=== PATIENT | female | born 1975 | race Hispanic/Latino ===

== ENCOUNTER 2021-03-29 08:00 | Inpatient (IN) | payer OTHER ==
[~2021-03-29] VITALS: Ht 160 cm; Wt 72.6 kg
[2021-03-29] MEDS ORDERED: PANTOPRAZOLE 40 MG 10ML VIAL IV STA (08:05)
[2021-03-29] MEDS ORDERED: ONDANSETRON HCL INJ 2MG/ML 2ML 2 MG/ML VIAL IV STA (08:05)
[2021-03-29] MEDS ORDERED: MORPHINE SULFATE INJ 4 MG/ML INJ 1ML IV STA (08:05)
[2021-03-29] MEDS ORDERED: SODIUM CHLORIDE 0.9% 1000ML 1,000 ML IV STA ×3 (08:05→11:34)
[2021-03-29 08:30] LABS: BASOPHILS # (AUTO) 0.1 (0.0-0.1); BASOPHILS % 0.3 % (0.0-1.0); HEMATOCRIT 39.3 % (34.2-44.1); HEMOGLOBIN 14.2 g/dL (12.0-16.0); LYMPHOCYTES # (AUTO) 1.4 (1.0-3.2); LYMPHOCYTES % 9.2 % (18.0-39.1); MEAN CORPUSCULAR HEMOGLOBIN 30.5 pg (28-32); MEAN CORPUSCULAR HGB CONC 36.1 g/dL (31-35); MEAN CORPUSCULAR VOLUME 84.5 fL (81-99); MONOCYTES # (AUTO) 0.5 (0.2-0.8); MONOCYTES % 3.6 % (4.4-11.3); NEUTROPHILS # (AUTO) 12.8 (2.1-6.9); NEUTROPHILS % 86.3 % (38.7-80.0); PLATELET COUNT 290 x10e3/uL (140-360); RED BLOOD COUNT 4.65 x10e6/uL (3.6-5.1); RED CELL DISTRIBUTION WIDTH 12.7 % (11.7-14.4)
[2021-03-29 08:40] LABS: CLARITY,URINE CLEAR (CLEAR); COLOR,URINE YELLOW (YELLOW); KETONES,URINE TRACE (NEGATIVE); LEUKOCYTE ESTERASE ,URINE NEGATIVE (NEGATIVE); NITRITE,URINE NEGATIVE (NEGATIVE); PROTEIN,URINE DIPSTICK 2+ (NEGATIVE)
[2021-03-29 08:41] LABS: URINE UROBILINOGEN 0.2 mg/dL (0.2 - 1)
[2021-03-29 08:47] LABS: INR 0.85; PARTIAL THROMBOPLASTIN TIME 25.5 seconds (23.8-35.5); PROTHROMBIN TIME 12.2 seconds (11.9-14.5)
[2021-03-29 08:56] LABS: BACTERIA,URINE RARE /HPF; EPITHELIAL CELLS,URINE FEW /LPF; WBC,URINE (MAN) 21-50 /HPF (0-5)
[2021-03-29 08:59] LABS: ALANINE AMINOTRANSFERASE 47 IU/L (0-55); ALBUMIN 4.3 g/dL (3.5-5.0); ALBUMIN/GLOBULIN RATIO 1.3 (0.8-2.0); ALKALINE PHOSPHATASE 63 IU/L (40-150); AMYLASE 46 U/L (25-125); ANION GAP 16.7 mmol/L (8-16); BLOOD UREA NITROGEN 8 mg/dL (7-26); BUN/CREATININE RATIO 12 (6-25); CALCIUM 8.4 mg/dL (8.4-10.2); CARBON DIOXIDE 21 mmol/L (22-29); CHLORIDE 102 mmol/L (98-107); CREATINE KINASE 106 IU/L (29-168); CREATININE, SERUM 0.66 mg/dL (0.57-1.11); EST GLOMERULAR FILTRATION RATE > 60 ML/MIN (60-); GLUCOSE 131 mg/dL (74-118); LIPASE 22 U/L (8-78); MAGNESIUM 1.6 MG/DL (1.3-2.1); POTASSIUM 3.7 mmol/L (3.5-5.1); SODIUM 136 mmol/L (136-145)
[2021-03-29] MEDS ORDERED: CEFTRIAXONE SOD 1 GM/50 ML BAG IV ONE (09:00)
[2021-03-29] MEDS ORDERED: CEFTRIAXONE 1 GM in SODIUM CHLORIDE 0.9% 50ML 50 ML IV ONE (09:15)
[2021-03-29] MEDS: PIPERACILLIN/TAZOBACTAM 3.375 GM in SODIUM CHLORIDE 0.9% 50ML 50 ML IV SCH (12:18)
[2021-03-29] MEDS ORDERED: MORPHINE SULFATE INJ 4 MG/ML INJ 1ML IV ONE (14:00)
[2021-03-29 16:06] VITALS: BP 130/71
[2021-03-29] MEDS: MORPHINE SULFATE INJ 2 MG/ML SYR IV PRN (16:54)
[2021-03-29 18:00] VITALS: BP 130/71
[2021-03-29 18:17] VITALS: BP 145/102
[2021-03-29] MEDS: SODIUM CHLORIDE 0.9% 1000ML 1,000 ML IV SCH ×2 (18:48→21:37)
[2021-03-29] MEDS ORDERED: LOSARTAN POTAS100 MG PO (19:12)
[2021-03-29] MEDS ORDERED: TRICOR145 MG PO (19:12)
[2021-03-29] MEDS ORDERED: HYDROCHLOROTHIA25 MG PO (19:12)
[2021-03-29 19:51] VITALS: BP 145/102
[2021-03-29 19:56] VITALS: BP 145/102
[2021-03-29 20:42] VITALS: BP 146/98
[2021-03-29 22:01] LABS: CREATINE KINASE MB 0.9 ng/mL (0-5.0)
[2021-03-30] VITALS (7 sets, daily range): BP systolic 110–142; BP diastolic 70–97
[2021-03-30] MEDS: SODIUM CHLORIDE 0.9% 1000ML 1,000 ML IV SCH ×3 (04:51→22:30)
[2021-03-30 05:20] LABS: BASOPHILS % 0.2 % (0.0-1.0); EOSINOPHILS % 0.1 % (0.0-6.0); HEMATOCRIT 34.8 % (34.2-44.1); HEMOGLOBIN 12.4 g/dL (12.0-16.0); LYMPHOCYTES # (AUTO) 1.2 (1.0-3.2); LYMPHOCYTES % 9.5 % (18.0-39.1); MEAN CORPUSCULAR HEMOGLOBIN 30.5 pg (28-32); MEAN CORPUSCULAR HGB CONC 35.6 g/dL (31-35); MEAN CORPUSCULAR VOLUME 85.5 fL (81-99); MONOCYTES # (AUTO) 1.2 (0.2-0.8); MONOCYTES % 9.2 % (4.4-11.3); NEUTROPHILS % 80.6 % (38.7-80.0); PLATELET COUNT 237 x10e3/uL (140-360); RED BLOOD COUNT 4.07 x10e6/uL (3.6-5.1)
[2021-03-30] MEDS: MORPHINE SULFATE INJ 2 MG/ML SYR IV PRN ×3 (05:30→22:00)
[2021-03-30 05:41] LABS: CREATINE KINASE MB 0.7 ng/mL (0-5.0)
[2021-03-30 06:12] LABS: ALANINE AMINOTRANSFERASE 40 IU/L (0-55); ALBUMIN 3.6 g/dL (3.5-5.0); ALBUMIN/GLOBULIN RATIO 1.2 (0.8-2.0); ALKALINE PHOSPHATASE 52 IU/L (40-150); ANION GAP 13.3 mmol/L (8-16); BUN/CREATININE RATIO 8 (6-25); CALCIUM 7.6 mg/dL (8.4-10.2); CARBON DIOXIDE 25 mmol/L (22-29); CHLORIDE 104 mmol/L (98-107); EST GLOMERULAR FILTRATION RATE > 60 ML/MIN (60-); GLUCOSE 131 mg/dL (74-118); POTASSIUM 3.3 mmol/L (3.5-5.1); SODIUM 139 mmol/L (136-145)
[2021-03-30 06:24] LABS: BLOOD UREA NITROGEN < 5 mg/dL (7-26)
[2021-03-30] MEDS: PIPERACILLIN/TAZOBACTAM 3.375 GM in SODIUM CHLORIDE 0.9% 50ML 50 ML IV SCH ×5 (06:29→17:20)
[2021-03-30] MEDS: FAMOTIDINE 20 MG/2 ML VIAL IV SCH (08:33)
[2021-03-30] MEDS ORDERED: BUPIVACAINE 0.5%/EPI 30 ML SDV INJ ONE (13:50)
[2021-03-30] MEDS ORDERED: FENTANYL CITRATE/PF 100MCG/2 ML INJ ONE (17:37)
[2021-03-30] MEDS ORDERED: MIDAZOLAM HCL 2 MG/2 ML VIAL ONE (17:37)
[2021-03-30] MEDS ORDERED: ROCURONIUM BROMIDE 10 MG/ML 5ML VIAL IV ONE (17:48)
[2021-03-30] MEDS ORDERED: ONDANSETRON HCL INJ 2MG/ML 2ML 2 MG/ML VIAL ONE (17:48)
[2021-03-30] MEDS ORDERED: PROPOFOL IV EMULSION 10 MG/ML 20 ML VIAL ONE (17:48)
[2021-03-30] MEDS ORDERED: NEOSTIGMINE 1 MG/ML 10ML VIAL ONE (17:48)
[2021-03-30] MEDS ORDERED: KETOROLAC TROMETHAMINE 30 MG/ML VIAL ONE (17:48)
[2021-03-30] MEDS ORDERED: SEVOFLURANE INHAL SOLN 250 ML PEN BTL ONE (17:48)
[2021-03-30] MEDS ORDERED: LIDOCAINE HCL 2% LOCAL INJ 5 ML SDV VIAL INJ ONE (17:48)
[2021-03-30] MEDS ORDERED: POVIDONE IODINE 0.05% 0.05 % ML PO ONE (17:48)
[2021-03-30] MEDS ORDERED: DEXAMETHASONE SOD PHOS INJ 4 MG/ML VIAL ONE (17:48)
[2021-03-30] MEDS ORDERED: GLYCOPYRROLATE INJ 0.2 MG/ML VIAL ONE (17:48)
[2021-03-30] MEDS: ONDANSETRON HCL INJ 2MG/ML 2ML 2 MG/ML VIAL IV PRN (22:00)
[2021-03-31] MEDS: PIPERACILLIN/TAZOBACTAM 3.375 GM in SODIUM CHLORIDE 0.9% 50ML 50 ML IV SCH ×3 (00:32→11:51)
[2021-03-31 00:52] VITALS: BP 115/77
[2021-03-31] MEDS: MORPHINE SULFATE INJ 2 MG/ML SYR IV PRN ×2 (03:32→08:53)
[2021-03-31] MEDS: ONDANSETRON HCL INJ 2MG/ML 2ML 2 MG/ML VIAL IV PRN (03:32)
[2021-03-31] MEDS: SODIUM CHLORIDE 0.9% 1000ML 1,000 ML IV SCH (05:52)
[2021-03-31 05:55] VITALS: BP 116/76
[2021-03-31 07:54] VITALS: BP 115/79
[2021-03-31 08:13] VITALS: BP 115/79
[2021-03-31] MEDS: FAMOTIDINE 20 MG/2 ML VIAL IV SCH (08:38)
[2021-03-31] MEDS ORDERED: TYLENOL # 31 EA PO (10:33)
[2021-03-31 11:24] VITALS: BP 141/99
== END 2021-03-31 13:13 | disposition home or self-care (01) | DRG 854 ==
LOC: ER 08:06 → ERHOLD 12:42 → MED/SURG2 15:25
PROVIDERS: ADMIT Internal Medicine; ATTEND Internal Medicine
PROC: 0FT44ZZ Resection of Gallbladder, Percutaneous Endoscopic Approach (ICD-10-PCS; 2021-03-30)
PROC: 0FT44ZZ Resection of Gallbladder, Percutaneous Endoscopic Approach (ICD-10-PCS; principal; 2021-03-30 09:30)
DX: A41.9 Sepsis, unspecified organism (principal); K80.00 Calculus of gallbladder with acute cholecystitis without obstruction; N39.0 Urinary tract infection, site not specified; I10 Essential (primary) hypertension; E78.1 Pure hyperglyceridemia; E78.5 Hyperlipidemia, unspecified; R65.20 Severe sepsis without septic shock; Z20.822 Contact with and (suspected) exposure to COVID-19; E66.9 Obesity, unspecified; Z68.28 Body mass index [BMI] 28.0-28.9, adult
CPT/HCPCS: 36415; 76705; 78227; 80053; 81001; 82150; 82550; 82553; 83605; 83690; 83735; 84484; 84702; 85025; 85610; 85730; 87040; 87086; 88304; 93005; 99285; A9537; J0696; J1100; J1885; J2001; J2250; J2270; J2405; J2543; J2710; J3010; J7030; U0002